=== PATIENT | male | born 1955 | race Caucasian/White ===

== ENCOUNTER 2019-06-07 18:26 | Emergency (ER) | payer BC ==
--- OUTSIDE RECORDS SUMMARY | 2019-06-07 18:32 | XMS REPORT | Continuity of Care Document ---
:1955 External Reference #:[id number] Author Name John Pereira MD Address [address] [place] [address] Care Team Providers Name Role Phone John Pereira MD - Family Care Team Information Spirits Model Medicine Problems Description No Information Available Social History Type Date Description Comments Sex Unknown Allergies, Adverse Reactions, Alerts Description No Known Drug Allergies Medications Active Medications SIG Qnty Indications Ordering Provider Date Wellbutrin SR take 1 by mouth 180tabs John TLeah 05/22/2018 150mg twice daily MD Randall Tablets ER 12HR Sildenafil Citrate one daily as 14tabs F52.21 John TLeah 05/20/2018 needed MD Randall 100mg Tablets Divalproex Sodium ER 3 by mouth every 270tabs John T. morning MD Randall 500mg Tablets ER 24HR Celexa 1 by mouth every 90tabs John T. 20mg Tablets day MD Randall Preservision Areds 2 1 by mouth bid Unknown Areds 2 Capsules Immunizations Description No Information Available Vital Signs Date Vital Result Comment 05/20/2019 10:08am BP Systolic 128 mmHg BP Diastolic 76 mmHg Heart Rate 58 /min Body Temperature 97.7 F Height 74.5 inches 6'2.50" Weight 226.00 lb BMI (Body Mass Index) 28.6 kg/m2 11/17/2018 12:04pm BP Systolic 136 mmHg BP Diastolic 80 mmHg Heart Rate 78 /min Body Temperature 98.8 F Respiratory Rate 16 /min Height 74.5 inches 6'2.50" Weight 256.00 lb BMI (Body Mass Index) 32.4 kg/m2 Results Description No Information Available Procedures Date Code Description Status 10/13/2016 22870296 Colonoscopy Completed Medical Devices Description No Information Available Encounters Description No Information Available Assessments Date Code Description Provider 05/20/2019 F31.70 Bipolar disorder, currently in remission, John Pereira MD most recent episod 05/20/2019 F52.21 Male erectile disorder John Pereira MD Plan of Treatment 05/20/2019 - John Pereira MDF31.70 Bipolar disorder, currently in remission, most recent episodFollow up:6 moF52.21 Male erectile disorderAllComments:Medication Management Patient Understands medications he's taking? Yes No Are there Barriersto Adherence? Yes No Has the patient been asked about herbal supplements and therapies, and OTC meds? Yes No Functional Status Description No Information Available Mental Status Description No Information Available Referrals Description No Information Available
[2019-06-07 19:29] VITALS: BP 137/83
[2019-06-07] MEDS ORDERED: Tetan/Diph/Pertus SYR(Tdap)* 0.5 ML SYR(BOOSTRIX) use SYR IM ONE (19:45)
--- NOTE | 2019-06-07 20:13 | UC ---
Skin Complaint HPI - HPI Summary HPI Summary: Patient is a 64yo male presenting with laceration to left index finger after cutting it with a sweat box attendant 2 hours ago. Patient states it bled immediately but he got it to stop. He denies any pain. Denies decreased ROM. Denies numbness or tingling. Patient is unsure of last tetanus booster and would like one today. - History of Current Complaint Chief Complaint: UCLaceration Stated Complaint: FINGER LACERATION Hx Obtained From: Patient Onset/Duration: Sudden Onset Onset Severity: Mild Current Severity: None Pain Intensity: 1 Pain Scale Used: 0-10 Numeric - Allergy/Home Medications Allergies/Adverse Reactions: Allergies Allergy/AdvReac Type Severity Reaction Status Date / Time No Known Allergies Allergy Verified 06/07/19 19:29 Home Medications: Home Medications Sildenafil Citrate [Viagra] 100 mg PO ONCE PRN 06/07/19 [History Confirmed 06/07] PMH/Surg Hx/FS Hx/Imm Hx Previously Healthy: Yes Psychological History: Bipolar Disorder Other History Of: Negative For: HIV, Hepatitis B, Hepatitis C, Anticoagulant Therapy - Surgical History Surgical History: Yes Surgery Procedure, Year, and Place: appy. hernia repair - Family History Known Family History: Positive: Non-Contributory Negative: Cardiac Disease, Hypertension - Social History Alcohol Use: Occasionally Substance Use Type: None Smoking Status (MU): Never Smoked Tobacco Review of Systems All Other Systems Reviewed And Are Negative: No Constitutional: Positive: Negative. Negative: Fever, Chills Skin: Positive: Other - left index finger laceration Respiratory: Positive: Negative Cardiovascular: Positive: Negative Motor: Negative: Decreased ROM, Weakness Neurovascular: Negative: Decreased Sensation, Decreased Pulses Musculoskeletal: Negative: Arthralgia, Decreased ROM, Edema Neurological: Negative: Weakness, Paresthesia, Numbness Psychological: Positive: Negative Physical Exam Triage Information Reviewed: Yes Appearance: Well-Appearing, No Pain Distress, Well-Nourished Vital Signs: Initial Vital Signs Temp 98.3 F 06/07/19 19:24 Pulse 70 06/07/19 19:24 Resp 16 06/07/19 19:24 BP 137/83 06/07/19 19:24 Pulse Ox 100 06/07/19 19:24 Vital Signs Reviewed: Yes Eyes: Positive: Conjunctiva Clear ENT: Positive: Hearing grossly normal Neck: Positive: Supple Respiratory: Positive: No respiratory distress Cardiovascular: Positive: Pulses Normal, Brisk Capillary Refill Musculoskeletal Exam: Normal Musculoskeletal: Positive: Strength Intact, ROM Intact, No Edema Neurological: Positive: Alert Psychological: Positive: Age Appropriate Behavior Skin: Positive: Other - small superficial avulsion of left index fingertip. minimal bleeding noted Procedures - Procedure Summary Procedure Summary: Wound was irrigated. Small amount of devitalized tissue removed with sterile scissors. Applied xeroform to the wound and wrapped it in gauze and coban. Patient tolerated procedure well. Course/Dx - Course Course Of Treatment: Patient received tetanus booster. Discussed with patient to keep wound clean and dry for the first 24-48 hours. He may take over the counter pain medications as directed for pain relief. I instructed him to return or go to the emergency department if he notices any redness, swelling, fluid drainage, inability to move the finger, fever, or nausea and vomiting. Patient voiced understanding and agreed to treatment plan. - Diagnoses Provider Diagnosis: Fingertip avulsion Discharge ED - Sign-Out/Discharge Documenting (check all that apply): Patient Departure All imaging exams completed and their final reports reviewed: No Studies - Discharge Plan Condition: Stable Disposition: HOME Patient Education Materials: Finger Laceration (ED) Referrals: Tato Gonzales MD [Primary Care Provider] - If Needed Additional Instructions: As discussed, keep your would clean and dry for the first 24-48 hours. You may take over the counter pain medications as directed for pain relief. Return or go to the emergency department if you notice any redness, swelling, fluid drainage, inability to move your finger, fever, or nausea and vomiting. - Billing Disposition and Condition Condition: STABLE Disposition: Home - Attestation Statements Provider Attestation: This patient was not seen by me. I was available for consult. Chart reviewed. SKY
== END 2019-06-07 20:35 | disposition home or self-care (01) ==
LOC: UCEAST 18:26
DX: S61.210A Laceration without foreign body of right index finger without damage to nail, initial encounter (principal); W26.0XXA Contact with knife, initial encounter; Y92.9 Unspecified place or not applicable; F31.9 Bipolar disorder, unspecified; Z23 Encounter for immunization
CPT/HCPCS: 12001; 90715; 99211; G0463

== ENCOUNTER 2019-07-19 09:06 | Emergency (ER) | payer BC ==
--- OUTSIDE RECORDS SUMMARY | 2019-07-19 09:12 | XMS REPORT | Continuity of Care Document ---
:1955 External Reference #:[id number] Author Name Samantha Raymundo O.D. Address [address] [place] [id number] Care Team Providers Name Role Phone John Pereira M.D. - Family Care Team Information Unit Educator Medicine Problems Active Problems Provider Date Gastroesophageal reflux disease Onset: Depressive disorder Onset: Bipolar I disorder Onset: Nuclear senile cataract Samantha Raymundo O.D. 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 Onset: degeneration Combined form of senile cataract John Tenorio M.D. Onset: 04/07/2016 Vitreous degeneration Samantha Raymundo O.D. Onset: 04/02/2015 Myopia Samantha Raymundo O.D. Onset: 04/02/2015 Nonexudative age-related macular Samantha Raymundo O.D. Onset: 04/02/2015 degeneration Social History Type Date Description Comments Sex Unknown ETOH Use Occasionally consumes alcohol Tobacco Use Start: Unknown Patient has never smoked Recreational Drug Use Denies Drug Use Smoking Status Reviewed: 07/07/19 Patient has never smoked Allergies, Adverse Reactions, Alerts Description No Known Drug Allergies Medications Active Medications SIG Qnty Indications Ordering Provider Date Citalopram Hydrobromide Unknown 20mg Tablets Divalproex Sodium ER Unknown 500mg Tablets ER 24HR Bupropion HCL ER (SR) Unknown 150mg Tablets ER 12HR Preservision Areds 2 1 cap by mouth Samantha Pennington Areds twice a day Matt Raymundo 2 Capsules Medications Administered in Office Medication SIG Qnty Indications Ordering Provider Date Manish Rizo, 02/14/2002 Injection Fclsa Manish Rizo, 02/18/2000 Injection Fclsa Immunizations Description No Information Available Vital Signs Description No Information Available Results Description No Information Available Procedures Description No Information Available Medical Devices Description No Information Available Encounters Description No Information Available Assessments Date Code Description Provider 07/07/2019 H25.13 Age-related nuclear cataract, bilateral Samantha Raymundo O.D. 07/07/2019 H43.813 Vitreous degeneration, bilateral Samantha Raymundo O.D. 07/07/2019 H44.22 Degenerative myopia, left eye Samantha Raymundo O.D. Plan of Treatment 07/07/2019 - Samantha Raymundo O.D.H25.13 Age-related nuclear cataract, bilateralComments:You have been diagnosed with cataracts. If you are happy with your vision as it is now, then we willsee you at your next scheduled appointment. If you feel like your vision is getting worse before your scheduled appointment, please call [facility] at [phone].Follow up:1 Year Follow Up OCT MAC You can expect to have your eyes dilated at your next visit. If Dr. Raymundo orders any additional testing, it may require extra time. We recommend that you bring sunglasses, as dilation drops often make you light sensitive until they wear off. We always recommend you bring someone to drive you home if you are uncomfortable driving with your eyes dilated. If you have any questions before your next visit, feel free to call our office at .H43.813 Vitreous degeneration, bilateralComments:You have a Posterior Vitreous Detachment. Please read the pamphlet that was given to you. If you have any changes in your floaters or flashing lights, please contact this office.H44.22 Degenerative myopia, left eyeComments:continue to take areds 2 formula vitamins Functional Status Description No Information Available Mental Status Description No Information Available Referrals Description No Information Available
[2019-07-19 09:19] VITALS: BP 144/78
--- NOTE | 2019-07-19 10:54 | UC ---
Throat Pain/Nasal Jose HPI - HPI Summary HPI Summary: 64 year old female with increased sinus pain, pressure x several day. + congestion. no improvement with OTCs - History of Current Complaint Chief Complaint: UCRespiratory Stated Complaint: COUGH, AND CHEST CONGESTION Time Seen by Provider: 07/19/19 10:34 Hx Obtained From: Patient Onset/Duration: Sudden Onset, Lasting Days Severity: Moderate Pain Intensity: 0 Pain Scale Used: 0-10 Numeric Cough: Nonproductive Associated Signs & Symptoms: Positive: Sinus Discomfort, Nasal Discharge - Allergies/Home Medications Allergies/Adverse Reactions: Allergies Allergy/AdvReac Type Severity Reaction Status Date / Time No Known Allergies Allergy Verified 07/19/19 09:19 PMH/Surg Hx/FS Hx/Imm Hx Previously Healthy: Yes Other History Of: Negative For: HIV, Hepatitis B, Hepatitis C, Anticoagulant Therapy - Surgical History Surgical History: Yes Surgery Procedure, Year, and Place: appy. hernia repair - Family History Known Family History: Positive: Non-Contributory Negative: Cardiac Disease, Hypertension - Social History Alcohol Use: Occasionally Substance Use Type: None Smoking Status (MU): Never Smoked Tobacco Review of Systems All Other Systems Reviewed And Are Negative: Yes Constitutional: Positive: Fever, Fatigue ENT: Positive: Nasal Discharge, Sinus Congestion, Sinus Pain/Tenderness Respiratory: Positive: Cough Cardiovascular: Positive: Negative Is Patient Immunocompromised?: No Physical Exam Triage Information Reviewed: Yes Appearance: No Pain Distress, Well-Nourished, Ill-Appearing - mild Vital Signs: Initial Vital Signs Temp 97.8 F 07/19/19 09:16 Pulse 75 07/19/19 09:16 Resp 16 07/19/19 09:16 BP 144/78 07/19/19 09:16 Pulse Ox 99 07/19/19 09:16 Vital Signs Reviewed: Yes ENT: Positive: Pharynx normal, Nasal drainage, TMs normal, Sinus tenderness - b/ l frontal, amxillary. Negative: Pharyngeal erythema, Tonsillar swelling, Tonsillar exudate, Uvula midline Neck: Positive: Supple, Nontender, No Lymphadenopathy. Negative: Nuchal Rigidity, Enlarged Nodes @ Respiratory: Positive: Chest non-tender, Lungs clear, Normal breath sounds, No respiratory distress, No accessory muscle use. Negative: Crackles, Rhonchi, Stridor, Wheezing Cardiovascular: Positive: RRR, No Murmur Skin Exam: Normal Throat Pain/Nasal Course/Dx - Course Course Of Treatment: Sinusitis: - Increase fluid intake - Augmentin twice daily for 7 days - Over the counter medications for symptoms - Motrin as needed for body aches, fever, headache - Return or follow up with primary physician within 2-3 days if no improvement - Go to ER with worsening symptoms - Differential Dx/Diagnosis Differential Diagnosis/HQI/PQRI: Sinusitis Provider Diagnosis: Sinusitis Discharge ED - Sign-Out/Discharge Documenting (check all that apply): Patient Departure All imaging exams completed and their final reports reviewed: No Studies - Discharge Plan Condition: Good Disposition: HOME Prescriptions: Amoxicillin/Clavulanate TAB* [Augmentin TAB 875*] 875 mg PO BID #14 tab Patient Education Materials: Sinusitis (ED) Referrals: John Pereira MD [Primary Care Provider] - Additional Instructions: - Increase fluid intake - Augmentin twice daily for 7 days - Over the counter medications for symptoms - Motrin as needed for body aches, fever, headache - Return or follow up with primary physician within 2-3 days if no improvement - Go to ER with worsening symptoms - Billing Disposition and Condition Condition: GOOD Disposition: Home
== END 2019-07-19 11:10 | disposition home or self-care (01) ==
LOC: UCEAST 09:06
DX: J32.9 Chronic sinusitis, unspecified (principal); R05 Cough; R09.89 Other specified symptoms and signs involving the circulatory and respiratory systems
CPT/HCPCS: 99213; G0463